=== PATIENT | male | born 1990 | race Caucasian/White ===

== ENCOUNTER 2020-12-18 16:34 | Emergency (ER) | payer MEDICAID ==
[~2020-12-18] VITALS: Ht 188 cm; Wt 93.2 kg
[2020-12-18 17:12] VITALS: BP 134/84
== END 2020-12-18 18:36 | disposition home or self-care (01) ==
LOC: ER 16:36
DX: U07.1 COVID-19 (principal); R05.9 Cough, unspecified; R52 Pain, unspecified
CPT/HCPCS: 36415; 99283; U0003; U0005